=== PATIENT | female | born 1935 ===

== ENCOUNTER → 2016-10-24 | Day surgery (SDC) | payer MEDICARE, OTHER ==
[~2016-10-24] MED LIST: ACETAMINOPHEN 1000 MG/100 ML VIAL IV ONE; BUPIVACAINE/EPINEPHRINE 0.25% 50 ML VIAL ONE; CIPR250T2 PO; DICY1TAB26 PO; DIGO0.12 PO; DILA2TAB2 PO; DRON400 PO; FLAG500T PO; FURO1TAB93 PO; FURO40TA PO; HYDR-3516 PO; HYDR-3533 PO; LACTATED RINGER'S 1000 ML INJ 1,000 ML ONE; LANO0.1212 PO; LIDOCAINE 1%/EPINEPHrine 1:100,000 SOLN 20 ML VIAL ONE; MULT400T PO; OMEP20TA PO; ONDANSETRON HCL 4 MG/2 ML VIAL IV PUSH ONE; OXYC-103 PO; OXYC-404 PO; POTA-163 PO; POTA10IN2 PO; PROPOFOL 100 MG/10 ML INJ IV ONE; SERT25TA83 PO; SIMV1TAB76 PO; SODIUM CHLOR 0.9% 250 ML BAG IV ONE; VANCOMYCIN HCL 1000 MG VIAL ONE; VERA120C PO; VERA1TAB9 PO; WARF3TAB PO; XARE20TA PO; ZOCO5TAB PO; ceFAZolin INJ 1,000 MG VIAL ONE
--- NOTE | 2016-10-26 17:21 | MP ---
cc: ELVIS BLAND M.D. DATE OF SURGERY: 10/26/2016. PREOPERATIVE DIAGNOSIS: Symptomatic reducible left inguinal hernia. POSTOPERATIVE DIAGNOSIS Symptomatic reducible, direct left inguinal hernia. OPERATIVE PROCEDURE PERFORMED: Left inguinal hernia repair with mesh. ANESTHESIA: LMA. SURGEON: Elvis Bland MD. WEBSITE DESIGNER: GIANFRANCO Valdovinos. ESTIMATED BLOOD LOSS: Less than 10 mL. FLUIDS: 950 ML crystalloid. COMPLICATIONS: None. DRAINS: None. SPECIMEN: None. NOTE: The [employer]'s assistance was required for the procedure. She was present for the entirety of the procedure from beginning to end. Her presence was required for retraction and exposure of structures as well as assisting in the actual procedure itself. DESCRIPTION OF THE PROCEDURE IN DETAIL: The patient was seen in the holding area and the left side marked by the undersigned and confirmed by the patient and her daughter. The patient was taken to the operating room and placed on the operating table in the supine position. The left groin was prepped and draped. Time-out was taken confirming the correct patient, site and procedure to be performed. Skin and subcutaneous tissue was infiltrated with local anesthetic and an incision made in a slightly oblique fashion in the groin. Dissection was carried down to the external oblique fascia where incision was made in the fascia. The underlying structures were dissected away from the external oblique fascia. The patient was noted to have a direct inguinal hernia. The round ligament was divided and the hernia was noted to be simply a direct defect. There was no hernia sac noted. At this point the iliohypogastric nerve was identified and left in its [place] structures and was not disturbed. Care was taken during the entire procedure to place no sutures near this nerve. A 3 x 6 inch piece of [employer]rium ProLite Mesh was brought up and placed into the wound. The defect was closed down before placing the mesh with interrupted 2-0 Prolene sutures. It should be noted that the round ligament, after division, was ligated with a Vicryl suture to prevent any neuroma or bleeding. The mesh was transfixed to the pubic tubercle with a 2-0 Prolene suture, which was then run along the shelving edge of the inguinal ligament to complete the lateral edge of the repair. The mesh was trimmed to size medially and interrupted 2-0 Prolene sutures were placed in the transversalis fascia to complete the repair. Once again, care was taken to avoid the iliohypogastric nerve and no sutures were placed near this. When this was completed, local anesthetic was injected into the transversalis fascia and subcutaneous. The external oblique fascia was closed with a running 3-0 Vicryl suture with care taken to exclude the underlying tissues from the closure. The wound was closed in two layers with interrupted 3-0 Vicryl suture and 5-0 PDS in a running subcuticular fashion in the skin. The wound was dressed with Telfa and Tegaderm and the patient was taken to back to the recovery room in stable condition. Sponge, needle and instrument counts were reported to be correct. The patient tolerated the procedure well. MD BRANDO Joyner/JCAnabelle /1:51 PM /5:18 PM GIULIANA
== END | disposition home or self-care (01) ==
LOC: ESDC 06:52
PROVIDERS: ATTEND Surgery Trauma Surgery
DX: K40.90 Unilateral inguinal hernia, without obstruction or gangrene, not specified as recurrent (principal)
CPT/HCPCS: 00830; 49505; C1781; J0131; J0690; J2405; J3010; J3370; J7050; J7120

== ENCOUNTER 2016-10-26 12:49 | Emergency (ER) | payer MEDICARE, OTHER ==
[~2016-10-26 12:49] MED LIST changes: -ACETAMINOPHEN 1000 MG/100 ML VIAL IV ONE; -BUPIVACAINE/EPINEPHRINE 0.25% 50 ML VIAL ONE; -DIGO0.12 PO; -DILA2TAB2 PO; -FURO40TA PO; -HYDR-3516 PO; -LACTATED RINGER'S 1000 ML INJ 1,000 ML ONE; -LIDOCAINE 1%/EPINEPHrine 1:100,000 SOLN 20 ML VIAL ONE; -MULT400T PO; -ONDANSETRON HCL 4 MG/2 ML VIAL IV PUSH ONE; -OXYC-404 PO; -POTA-163 PO; -PROPOFOL 100 MG/10 ML INJ IV ONE; -SERT25TA83 PO; -SODIUM CHLOR 0.9% 250 ML BAG IV ONE; -VANCOMYCIN HCL 1000 MG VIAL ONE; -VERA120C PO; -XARE20TA PO; -ZOCO5TAB PO; -ceFAZolin INJ 1,000 MG VIAL ONE
[2016-10-26 12:51] VITALS: BP 125/58; PULSE 44; RESP 20; TEMP 98.2; O2SAT 95
[2016-10-26 13:14] VITALS: RESP 16; O2SAT 97
[2016-10-26] MEDS ORDERED: ONDANSETRON HCL 4 MG/2 ML VIAL IVP ONE (13:15)
[2016-10-26] MEDS ORDERED: SODIUM CHLORIDE 0.9% FLUSH 10 ML FLUSH IV FLUSH PRN (13:15)
[2016-10-26] MEDS ORDERED: ZOCO5TAB PO (13:24)
[2016-10-26] MEDS ORDERED: POTA-163 PO (13:24)
[2016-10-26] MEDS ORDERED: OXYC-404 PO (13:24)
[2016-10-26] MEDS ORDERED: MULT400T PO (13:24)
[2016-10-26] MEDS ORDERED: HYDR-3516 PO (13:24)
[2016-10-26] MEDS ORDERED: FURO40TA PO (13:24)
[2016-10-26] MEDS ORDERED: DIGO0.12 PO (13:24)
[2016-10-26] MEDS ORDERED: OMEP20TA PO (13:24)
[2016-10-26] MEDS ORDERED: VERA120C PO (13:24)
[2016-10-26] MEDS ORDERED: XARE20TA PO (13:24)
[2016-10-26] MEDS ORDERED: SERT25TA83 PO (13:27)
--- NOTE | 2016-10-26 13:44 | PD ---
HPI Chief Complaint: Pain: Acute or Chronic Time Seen by Provider: 13:28 Travel History International Travel<30 days: No Contact w/Intl Traveler<30days: No Traveled to known affect area: No History of Present Illness HPI Patient is a 81-year-old female presenting to emergency for evaluation of increased pain. Patient had a hernia repair with Dr. Bland on Thursday in her left inguinal area. Daughter states that she was in pain yesterday however today the pain is worse and radiating down her left leg. Additionally patient suffers with chronic constipation secondary to narcotic pain control which she takes for chronic back pain. Patient has not had a bowel movement since and states she does feel bloated. Patient took 2 Lortab 5 mg/325 at 9 AM this morning, she also took OxyContin 10 mg this morning. These are her normal home medications for her back pain but they not been effective in relieving the postoperative pain. Patient denies any shortness of breath, chest pain, incontinence, dysuria, vomiting. She states she has been nauseated at times. Daughter discussed with Dr. Bland prior to arrival, he advised her to come in for pain control. PFSH Past Medical History Hx Anticoagulant Therapy: Yes Arthritis: Yes Asthma: No Atrial Fibrillation: Yes Autoimmune Disease: No Heart Rhythm Problems: No Cancer: No Cardiovascular Problems: Yes High Cholesterol: No Chest Pain: No Congestive Heart Failure: Yes COPD: No Cerebrovascular Accident: No Diabetes: No Endocrine: No Gastrointestinal Disorders: Yes (diverticulosis) GERD: Yes Genitourinary: Yes Hiatal Hernia: No Immune Disorder: No Kidney Stones: No Neurologic: Yes (MENINGITIS) Psychiatric: No Reproductive: No Respiratory: Yes (encapsulated tuberculosis) Migraines: Yes Renal Failure: No Seizures: No Sleep Apnea: No Thyroid Disease: No Ulcer: No Tetanus Vaccination: > 5 Years Influenza Vaccination: No Past Surgical History Abdominal Surgery: Yes (hernia) Cardiac Surgery: No Ear Surgery: No Endocrine Surgery: No Eye Surgery: Yes (BILATERAL CATARACTS) Genitourinary Surgery: No Hysterectomy: Yes Neurologic Surgery: Yes (2 c spine, 3 back) Oral Surgery: Yes (DENTURES, LOWER IMPLANT AT ONE TIME. ) Thoracic Surgery: Yes (lung TB X25 YEARS) Social History Alcohol Use: No Tobacco Use: No Substance Use: No Allergies-Medications (Allergen,Severity, Reaction): Coded Allergies: Nonsteroidal Anti-Inflammatory Agts (Verified Adverse Reaction, Unknown, ) Reported Meds & Prescriptions Reported Meds & Active Scripts Active Reported Sertraline (Sertraline HCl) 25 Mg Tab 25 Mg PO HS Xarelto (Rivaroxaban) 20 Mg Tab 20 Mg PO DAILY Verapamil HCl ER (Verapamil HCl) 120 Mg Cap 120 Mg PO DAILY Zocor (Simvastatin) 5 Mg Tab 5 Mg PO HS Potassium Chloride ER (Potassium Chloride) 20 Meq Tab 20 Meq PO DAILY Oxycodone ER (Oxycodone HCl) 10 Mg Tab 10 Mg PO Q8HR Omeprazole 20 Mg Tab 20 Mg PO DAILY Hydrocodone-Acetaminophen 5-325 mg Tab 1 Tab PO Q6H PRN Furosemide 40 Mg Tab 40 Mg PO DAILY Multaq (Dronedarone) 400 Mg Tab 400 Mg PO BID Digoxin 0.125 Mg Tab 0.06 Mg PO DAILY Review of Systems Except as stated in HPI: all other systems reviewed are Neg HENT: No: Headaches Cardiovascular: No: Chest Pain or Discomfort Respiratory: No: Shortness of Breath Gastrointestinal: Positive: Nausea, Abdominal Pain, Constipation, Changes in Bowel Habits Genitourinary: No: Dysuria Musculoskeletal: Positive: Myalgias Neurologic: No: Weakness Physical Exam Narrative GENERAL: Well-developed, well-nourished, well-appearing elderly female. Resting in no acute distress. SKIN: Warm and dry. Incision to left lower quadrant, skin is mildly erythematous around the incision, it appears consistent with irritation from the latex dressing. No warmth noted. HEAD: Atraumatic. Normocephalic. EYES: Pupils equal and round. No scleral icterus. No injection or drainage. ENT: No nasal bleeding or discharge. Mucous membranes pink and moist. NECK: Trachea midline. No JVD. CARDIOVASCULAR: Regular rate and rhythm. RESPIRATORY: No accessory muscle use. Clear to auscultation. Breath sounds equal bilaterally. GASTROINTESTINAL: Abdomen firm, mildly tender to palpation in bilateral lower quadrants, nondistended. Hepatic and splenic margins not palpable. Positive bowel sounds. MUSCULOSKELETAL: Extremities without clubbing, cyanosis, or edema. No obvious deformities. No tenderness to palpation in left groin or left thigh. Left leg lifts does not elicit pain. Patient is neurovascularly intact. NEUROLOGICAL: Awake and alert. No obvious cranial nerve deficits. Motor grossly within normal limits. Five out of 5 muscle strength in the arms and legs. Normal speech. PSYCHIATRIC: Appropriate mood and affect; insight and judgment normal. Data Data Last Documented VS Vital Signs Date Time Temp Pulse Resp B/P Pulse Ox O2 Delivery O2 Flow Rate FiO2 10/26/16 13:54 50 18 131/73 96 Nasal Cannula 2 10/26/16 12:51 98.2 Orders Complete Blood Count With Diff (10/26/16 13:09) Comprehensive Metabolic Panel (10/26/16 13:09) Lipase (10/26/16 13:09) Lactic Acid (10/26/16 13:09) Urinalysis - C+S If Indicated (10/26/16 13:09) Iv Access Insert/Monitor (10/26/16 13:09) Ecg Monitoring (10/26/16 13:09) Oximetry (10/26/16 13:09) Ondansetron Inj (Zofran Inj) (10/26/16 13:15) Sodium Chloride 0.9% Flush (Ns Flush) (10/26/16 13:15) Abdomen, Kub Only (10/26/16 13:09) Digoxin (10/26/16 13:11) Hydromorphone Pf Inj (Dilaudid Pf Inj) (10/26/16 14:00) Chest, Single Ap (10/26/16 ) Labs Laboratory Tests Test 10/26/16 10/26/16 10/26/16 13:15 13:30 15:05 White Blood Count 10.9 TH/MM3 Red Blood Count 4.26 MIL/MM3 Hemoglobin 11.5 GM/DL Hematocrit 36.3 % Mean Corpuscular Volume 85.1 FL Mean Corpuscular Hemoglobin 27.1 PG Mean Corpuscular Hemoglobin 31.8 % Concent Red Cell Distribution Width 15.5 % Platelet Count 280 TH/MM3 Mean Platelet Volume 7.3 FL Neutrophils (%) (Auto) 61.2 % Lymphocytes (%) (Auto) 26.2 % Monocytes (%) (Auto) 9.2 % Eosinophils (%) (Auto) 2.4 % Basophils (%) (Auto) 1.0 % Neutrophils # (Auto) 6.7 TH/MM3 Lymphocytes # (Auto) 2.9 TH/MM3 Monocytes # (Auto) 1.0 TH/MM3 Eosinophils # (Auto) 0.3 TH/MM3 Basophils # (Auto) 0.1 TH/MM3 CBC Comment DIFF FINAL Differential Comment Sodium Level 140 MEQ/L Potassium Level 4.1 MEQ/L Chloride Level 105 MEQ/L Carbon Dioxide Level 32.8 MEQ/L Anion Gap 2 MEQ/L Blood Urea Nitrogen 20 MG/DL Creatinine 1.21 MG/DL Estimat Glomerular Filtration 42 ML/MIN Rate Random Glucose 85 MG/DL Calcium Level 8.7 MG/DL Total Bilirubin 0.3 MG/DL Aspartate Amino Transf 15 U/L (AST/SGOT) Alanine Aminotransferase 18 U/L (ALT/SGPT) Alkaline Phosphatase 39 U/L Total Protein 7.2 GM/DL Albumin 3.4 GM/DL Lipase 129 U/L Digoxin Level 0.7 NG/ML Lactic Acid Level 0.8 mmol/L Urine Color LIGHT-YELLOW Urine Turbidity CLEAR Urine pH 5.0 Urine Specific [place] 1.012 Urine Protein NEG mg/dL Urine Glucose (UA) NEG mg/dL Urine Ketones NEG mg/dL Urine Occult Blood NEG Urine Nitrite NEG Urine Bilirubin NEG Urine Urobilinogen LESS THAN 2.0 MG/DL Urine Leukocyte Esterase NEG Urine RBC 1 /hpf Urine WBC 2 /hpf Urine Squamous Epithelial <1 /hpf Cells Urine Mucus FEW /lpf Microscopic Urinalysis Comment CULT NOT INDICATED MDM Medical Decision Making Medical Screen Exam Complete: Yes Emergency Medical Condition: Yes Interpretation(s) Vital Signs Date Time Temp Pulse Resp B/P Pulse Ox O2 Delivery O2 Flow Rate FiO2 10/26/16 13:14 16 97 Nasal Cannula 2 10/26/16 12:58 55 18 10/26/16 12:51 98.2 44 20 125/58 95 Room Air Differential Diagnosis Constipation versus obstruction versus metabolic abnormality versus nerve impingement versus intractable pain versus other Narrative Course Patient is an 81-year-old female presenting on the advice of her surgeon for evaluation of postsurgical pain. Incision site appears to be healing well, there is no significant tenderness on exam to the left groin, surgical site or left thigh. Patient does appear slightly distended and has not had a bowel movement since which could be causing her pain. Labs and imaging ordered and pending. Patient will be given 0.5 mg dose of IV Dilaudid now. CBC is unremarkable Chemistry with slight elevation BUN and creatinine when compared to prior Lactic acid 0.8 Dig level 0.7 Urinalysis is unremarkable KUB with nonspecific abdomen, chest x-ray shows slight cardiomegaly which is stable from prior. Patient was given 0.5 mg IV Dilaudid in the emergency department her pain is controlled as long as she is sedentary. She is able to bear weight without pain however when she attempts to ambulate she feels the pain shooting down her leg. Dr. Ruiz discussed findings with Dr. Bland, patient will be given a short course of oral Dilaudid. She is to follow-up in the office as scheduled, she can return to emergency department or call Dr. Bland sooner for any new or worsening symptoms. Patient is stable for discharge. Diagnosis Primary Impression: Postoperative pain Referrals: Elvis Bland MD As needed and as scheduled Patient Instructions: General Instructions Additional Instructions: Follow-up with Dr. Bland as scheduled Return to emergency department for any new or worsening symptoms Maintain adequate fluid intake Med/Other Pt SpecificInfo: Prescription(s) given Scripts Hydromorphone (Dilaudid)2 Mg Tab2 Mg PO Q6H PRN (Pain Management) #6 TAB Ref 0 Prov:Quentin Ruiz MD 10/26/16 Disposition: 01 DISCHARGE HOME Condition: Stable Varun,Oanh [facility] Oct 26, 2016 13:44
[2016-10-26 13:54] VITALS: BP 131/73; PULSE 50; RESP 18; O2SAT 96
[2016-10-26 13:59] LABS: AUTOMATED NEUTROPHIL # 6.7 TH/MM3 (1.8-7.7); BASOPHIL # 0.1 TH/MM3 (0-0.2); EOSINOPHIL # 0.3 TH/MM3 (0-0.4); EOSINOPHIL % 2.4 % (0.0-4.0); HEMATOCRIT 36.3 % (35.0-46.0); HEMO FLAGS DIFF FINAL; LYMPH % 26.2 % (9.0-44.0); LYMPHOCYTE # 2.9 TH/MM3 (1.0-4.8); MEAN CELL VOLUME 85.1 FL (80.0-100.0); MEAN CORPUSCULAR HEMOGLOBIN 27.1 PG (27.0-34.0); MEAN CORPUSCULAR HGB CONC 31.8 % (32.0-36.0); MONO % 9.2 % (0.0-8.0); NEUT % 61.2 % (16.0-70.0); PLATELET COUNT 280 TH/MM3 (150-450); RED BLOOD COUNT 4.26 MIL/MM3 (4.00-5.30); RED CELL DISTRIBUTION WIDTH 15.5 % (11.6-17.2); WHITE BLOOD COUNT 10.9 TH/MM3 (4.0-11.0)
[2016-10-26] MEDS ORDERED: HYDROmorphone HCL PF 1 MG/ML VIAL IV PUSH ONE (14:00)
[2016-10-26 14:09] LABS: ALT (GPT) 18 U/L (10-53); ANION GAP 2 MEQ/L (5-15); AST (GOT) 15 U/L (15-37); BICARBONATE 32.8 MEQ/L (21.0-32.0); BLOOD UREA NITROGEN 20 MG/DL (7-18); CHLORIDE 105 MEQ/L (98-107); GLOMERULAR FILTRATION RATE 42 ML/MIN (>89); POTASSIUM 4.1 MEQ/L (3.5-5.1); SODIUM (NA) 140 MEQ/L (136-145)
[2016-10-26 14:12] LABS: ALKALINE PHOSPHATASE 39 U/L (45-117); TOTAL BILIRUBIN ADULT 0.3 MG/DL (0.2-1.0)
--- NOTE | 2016-10-26 15:16 | RADRPT ---
EXAM DATE/TIME: 10/26/2016 14:04 [facility] COMPARISON: No previous studies available for comparison. INDICATIONS : Post Hernia Surgical Pain MEDICAL HISTORY : Cardiovascular disease. Hernia SURGICAL HISTORY : Inguinal hernia repair. ENCOUNTER: Initial ACUITY: 1 day PAIN SCORE: 5/10 LOCATION: Bilateral Abdominal Pain FINDINGS: The bowel gas is nonspecific. There are no signs of obstruction or free air for technique. No defini te calcified stones are identified for technique. CONCLUSION: Nonspecific abdomen. Mitch Hartmann MD on October 26, 2016 at 15:14 Board Certified Radiologist. This report was verified electronically.
--- NOTE | 2016-10-26 15:40 | RADRPT ---
EXAM DATE/TIME: 10/26/2016 14:46 [facility] COMPARISON: CHEST SINGLE AP, August 09, 2015, 12:36. INDICATIONS : Short of breath MEDICAL HISTORY : Cardiovascular disease. SURGICAL HISTORY : Inguinal hernia repair. ENCOUNTER: Initial ACUITY: 1 day PAIN SCORE: 0/10 LOCATION: chest FINDINGS: Slight cardiomegaly has not changed. There are atherosclerotic calcifications of the aorta due to chr onic atherosclerotic disease. Lungs are clear. CONCLUSION: No change in slight cardiomegaly. Mitch Hartmann MD on October 26, 2016 at 15:37 Board Certified Radiologist. This report was verified electronically.
[2016-10-26 15:52] LABS: BLOOD, URINE NEG (NEG); COMMENT (UR) CULT NOT INDICATED; CULTURE IF INDICATED CULT NOT INDICATED; GLUCOSE,URINE NEG (NEG); KETONE, URINE NEG (NEG); MUCUS URINE FEW /lpf (OCC); NITRITE,URINE NEG (NEG); SQUAMOUS EPITHELIAL CELL URINE <1 /hpf (0-5); URINE COLOR LIGHT-YELLOW (YELLW/STRAW)
[2016-10-26] MEDS ORDERED: DILA2TAB2 PO (17:06)
[2016-10-26 17:14] VITALS: BP 130/75; PULSE 46; RESP 18; O2SAT 96
--- NOTE | 2016-11-04 12:27 | PD ---
Data Data Orders Complete Blood Count With Diff (10/26/16 13:09) Comprehensive Metabolic Panel (10/26/16 13:09) Lipase (10/26/16 13:09) Lactic Acid (10/26/16 13:09) Urinalysis - C+S If Indicated (10/26/16 13:09) Iv Access Insert/Monitor (10/26/16 13:09) Ecg Monitoring (10/26/16 13:09) Oximetry (10/26/16 13:09) Ondansetron Inj (Zofran Inj) (10/26/16 13:15) Sodium Chloride 0.9% Flush (Ns Flush) (10/26/16 13:15) Abdomen, Kub Only (10/26/16 13:09) Digoxin (10/26/16 13:11) Hydromorphone Pf Inj (Dilaudid Pf Inj) (10/26/16 14:00) Chest, Single Ap (10/26/16 ) MDM Supervised Visit with YADIRA: Yes Narrative Course Patient seen and examined by me in addition to [employer] PERSON. Agree with documentation. I discussed with Dr. Bland. Pain may be difficult to control in this patient 2/2 chronic opiate use. Had discussion with patient's daughter regarding pain control and daughter is willing to take patient home. Discussed with daughter and patient that this groin pain/stretching feeling is common after this procedure and to give some time with icepacks and non-narcotic pain medication. Short script of dilaudid written to be used with caution 2/2 drowsiness and constipation. No operation of heavy machinery. DIscussed follow up with Dr. Bland as scheduled and discussed return to ED criteria. Diagnosis Primary Impression: Postoperative pain Referrals: Elvis Bland MD As needed and as scheduled Patient Instructions: General Instructions Departure Forms: Tests/Procedures Additional Instruction: Follow-up with Dr. Bland as scheduled Return to emergency department for any new or worsening symptoms Maintain adequate fluid intake Scripts Hydromorphone (Dilaudid)2 Mg Tab2 Mg PO Q6H PRN (Pain Management) #6 TAB Ref 0 Prov:Quentin Ruiz MD 10/26/16 Disposition: 01 DISCHARGE HOME Condition: Stable Quentin Ruiz MD Nov 04, 2016 12:27
== END 2016-10-26 17:32 | disposition home or self-care (01) ==
LOC: NEPE 12:49
DX: G89.18 Other acute postprocedural pain (principal); R11.0 Nausea; K59.00 Constipation, unspecified; M54.9 Dorsalgia, unspecified; G89.29 Other chronic pain; M79.1 Myalgia; I48.91 Unspecified atrial fibrillation; I50.9 Heart failure, unspecified; K21.9 Gastro-esophageal reflux disease without esophagitis
CPT/HCPCS: 71010; 74000; 80053; 80162; 81001; 83605; 83690; 85025; 96374; 96375; 99284; J1170; J2405